=== PATIENT | male | born 1970 | race Caucasian/White ===

== ENCOUNTER → 2017-10-25 | Outpatient (REF) | payer BC ==
[2017-10-25 13:17] LABS: HEMATOCRIT 47.2 % (42.0-52.0); HEMOGLOBIN 16.1 g/dl (14.0-18.0); MEAN CORPUSCULAR HEMOGLOBIN 30.8 pg (27.0-33.0); MEAN CORPUSCULAR HGB CONC 34.1 g/dl (32.0-36.5); MEAN CORPUSCULAR VOLUME 90.4 fl (80.0-96.0); PLATELET COUNT, AUTOMATED 262 10^3/uL (150-450); RED BLOOD COUNT 5.22 10^6/uL (4.30-6.10); RED CELL DISTRIBUTION WIDTH 12.2 % (11.5-14.5)
[2017-10-25 13:37] LABS: VITAMIN B12 LEVEL 675 PG/ML (247-911)
[2017-10-25 14:42] LABS: ALBUMIN 4.4 GM/DL (3.2-5.2); ALBUMIN/GLOBULIN RATIO 1.42 (1.00-1.93); ALKALINE PHOSPHATASE 71 U/L (45-117); ALT/SGPT 41 U/L (12-78); ANION GAP 6 MEQ/L (8-16); AST/SGOT 17 U/L (7-37); BILIRUBIN,TOTAL 0.3 MG/DL (0.2-1.0); BLOOD UREA NITROGEN 11 MG/DL (7-18); CALCIUM LEVEL 8.7 MG/DL (8.5-10.1); CARBON DIOXIDE LEVEL 29 MEQ/L (21-32); CHLORIDE LEVEL 106 MEQ/L (98-107); CHOLESTEROL LEVEL 173 MG/DL (<200); CREATININE FOR GFR 0.87 MG/DL (0.70-1.30); FERRITIN 119 NG/ML (26-388); FREE T4 0.89 NG/DL (0.76-1.46); GLOMERULAR FILTRATION RATE > 60.0 (>60); GLUCOSE, FASTING 90 MG/DL (70-100); HDL CHOLESTEROL 46 MG/DL (>40); NON-HDL-C 127 MG/DL; POTASSIUM SERUM 4.5 MEQ/L (3.5-5.1); SODIUM LEVEL 141 MEQ/L (136-145); TOTAL PROTEIN 7.5 GM/DL (6.4-8.2); TRIGLYCERIDES LEVEL 75 MG/DL (<150)
[2017-10-27 00:09] LABS: TESTOSTERONE FREE (DIRECT) 11.3 pg/mL (6.8-21.5)
== END ==
LOC: M SFHCCLAY 09:21
DX: Z00.00 Encounter for general adult medical examination without abnormal findings (principal); R53.83 Other fatigue
CPT/HCPCS: 84403

== ENCOUNTER → 2017-12-25 | Outpatient (CLI) | payer BC | LOC: M RAD 10:10 | DX: I73.9 Peripheral vascular disease, unspecified (principal); R51 Headache | CPT/HCPCS: 70551 ==

== ENCOUNTER → 2018-01-23 | Outpatient (REF) | payer BC ==
[2018-01-23 12:29] LABS: ERYTHROCYTE SEDIMENTATION RATE 2 mm/hr (0-15)
[2018-01-23 13:02] LABS: FERRITIN 122 NG/ML (26-388); IRON (FE) 119 UG/DL (65-175); PERCENT SATURATION 36.8 % (19.7-50.0); TOTAL IRON BINDING CAPACITY 323 UG/DL (250-450)
[2018-01-25 00:06] LABS: ANTINUCLEAR ANTIBODIES DIRECT Negative (Negative)
== END ==
LOC: M LABNEURO 09:23
DX: R51 Headache (principal)
CPT/HCPCS: 83550

== ENCOUNTER → 2019-05-06 | Outpatient (CLI) | payer OTHER ==
--- NOTE | 2019-05-06 15:02 | REP ---
REASON: Knee pain. FINDINGS: The compartments are symmetric and relatively well maintained. There is no acute fracture or destructive osseous lesion. Electronically Signed by Kevin Hagan DO 05/06/2019 03:15 P
== END ==
LOC: M RAD 13:54
PROVIDERS: ATTEND Physician Assistant Medical
DX: M25.561 Pain in right knee (principal)

== ENCOUNTER 2021-04-19 16:44 | Observation (INO) | payer BC, OTHER ==
[~2021-04-19] VITALS: Ht 175.3 cm; Wt 88.4 kg
--- NOTE | 2021-04-19 17:07 | REP ---
INDICATION: neuro symptoms. COMPARISON: MRI 12/25/2017, CT 01/19/2008 TECHNIQUE: CT BRAIN PERFORMED IN THE AXIAL PLANE. CORONAL RECONSTRUCTION IMAGES ARE PERFORMED. FINDINGS: THE VENTRICLES ARE NORMAL IN SIZE AND POSITION. THERE IS NO MIDLINE SHIFT OR MASS EFFECT. VALE-WHITE DIFFERENTIATION IS WELL MAINTAINED. THERE IS NO ACUTE INTRACRANIAL HEMORRHAGE OR EXTRA-AXIAL FLUID COLLECTION. BONE WINDOW EXAMINATION IS UNREMARKABLE. VISUALIZED MASTOID AIR CELLS AND PARANASAL SINUSES ARE CLEAR. IMPRESSION: NEGATIVE NONCONTRAST CT BRAIN. <Electronically signed by Mode Sunshine > 04/19/21 [id number]
--- NOTE | 2021-04-19 17:28 | REP ---
INDICATION: CVA. COMPARISON: 08/21/2016. TECHNIQUE: Single portable AP view of the chest was performed. FINDINGS: There is no acute infiltrate or pulmonary edema. Lungs are clear. The heart is not significantly enlarged. The mediastinal silhouette is unremarkable. The visualized osseous structures are intact. IMPRESSION: No acute pulmonary disease. <Electronically signed by Kvng Lama > 04/19/21 [id number]
[2021-04-19 17:31] LABS: BASO % 0.6 % (0.0-1.0); EOS % 0.6 % (0.0-3.0); HEMATOCRIT 48.1 % (42.0-52.0); HEMOGLOBIN 16.3 g/dl (13.5-17.5); LYMPH # 2.1 10^3/uL (1.5-5.0); MEAN CORPUSCULAR HEMOGLOBIN 30.8 pg (27.0-33.0); MEAN CORPUSCULAR HGB CONC 33.9 g/dl (32.0-36.5); MEAN CORPUSCULAR VOLUME 90.8 fl (80.0-96.0); MONO # 0.5 10^3/uL (0.0-0.8); MONO % 7.5 % (2.0-8.0); NEUTROPHILS # 4.5 10^3/uL (1.5-8.5); NEUTROPHILS % 61.9 % (36.0-66.0); PLATELET COUNT, AUTOMATED 261 10^3/uL (150-450); WHITE BLOOD COUNT 7.2 10^3/uL (4.0-10.0)
[2021-04-19 17:56] LABS: INR 0.93; PARTIAL THROMBOPLASTIN TIME 26.4 SECONDS (24.2-38.5); PROTHROMBIN TIME 12.7 SECONDS (12.5-14.3)
[2021-04-19 18:07] LABS: BLOOD UREA NITROGEN 8 MG/DL (7-18); CARBON DIOXIDE LEVEL 27 MEQ/L (21-32); CHLORIDE LEVEL 108 MEQ/L (98-107); CK-MB VALUE MASS 1.5 NG/ML (<3.6); CPK CREATINE PHOSPHOKINASE 210 U/L (39-308); CREATININE FOR GFR 0.76 MG/DL (0.70-1.30); GLOMERULAR FILTRATION RATE > 60.0 (>56); GLUCOSE, FASTING 84 MG/DL (70-100); MB/CK RELATIVE INDEX 0.71 (< OR =4); POTASSIUM SERUM 3.9 MEQ/L (3.5-5.1); SODIUM LEVEL 141 MEQ/L (136-145); TROPONIN I < 0.02 NG/ML (< 0.10)
[2021-04-19] MEDS ORDERED: ISOVUE-370 76% 100ML VIAL As Ordered ONE (18:29)
--- NOTE | 2021-04-19 19:10 | REPVR ---
PROCEDURE INFORMATION: Exam: CT Angiography Head With Contrast, Arteriography Exam date and time: 04/19/2021 6:35 PM Age: 50 years old Clinical indication: Other: Left sided facial numbness/left arm heaviness TECHNIQUE: Imaging protocol: Computed tomography angiography of the head with contrast. Exam focused on the arteries. 3D rendering (Not supervised by radiologist): MIP and/or 3D reconstructed images were created by the technologist. Radiation optimization: All CT scans at this facility use at least one of these dose optimization techniques: automated exposure control; mA and/or kV adjustment per patient size (includes targeted exams where dose is matched to clinical indication); or iterative reconstruction. Contrast material: ISOVUE 370; Contrast volume: 100 ml; Contrast route: INTRAVENOUS (IV); COMPARISON: CT Head without contrast 04/19/2021 4:53 PM FINDINGS: Ventricles, cisterns and sulci are symmetric and appropriate for age. No intracranial mass or focal mass effect. No intracranial hemorrhage, midline shift or acute territorial infarct. Anterior circulation: Normal contrast opacification and luminal caliber in the petrous, cavernous and supraclinoid internal carotid arteries. Normal appearance of the anterior cerebral artery branches and middle cerebral artery branches through the MCA trifurcations. No occlusion, high-grade focal stenosis or dissection. No aneurysm. Posterior circulation: Distal vertebral arteries enhance normally to the vertebrobasilar junction. Normally enhancing, normal caliber basilar artery, and normal superior cerebellar and posterior cerebral arteries. No occlusion, high-grade stenosis or aneurysm. Diminutive left P1 segment, with normal caliber left SANDBLAST OPERATOR predominantly supplied by a posterior communicating artery Dural sinuses enhance normally. Bony structures show no acute fracture or destructive process. IMPRESSION: No intracranial large vessel arterial occlusive or high-grade stenotic lesion ASPECTS ([place] Stroke Program Early CT Score) is 10. Electronically signed by: Sahil Lr On 04/19/2021 19:09:16 PM
--- NOTE | 2021-04-19 19:12 | REPVR ---
PROCEDURE INFORMATION: Exam: CT Angiography Neck With Contrast Exam date and time: 04/19/2021 6:35 PM Age: 50 years old Clinical indication: Other: Left sided facial numbness/left arm heaviness TECHNIQUE: Imaging protocol: Computed tomography angiography of the neck with contrast. 3D rendering (Not supervised by radiologist): MIP and/or 3D reconstructed images were created by the technologist. Radiation optimization: All CT scans at this facility use at least one of these dose optimization techniques: automated exposure control; mA and/or kV adjustment per patient size (includes targeted exams where dose is matched to clinical indication); or iterative reconstruction. Contrast material: ISOVUE 370; Contrast volume: 100 ml; Contrast route: INTRAVENOUS (IV); COMPARISON: CT Spine,cervical w/o contrast 07/30/2015 7:10 PM FINDINGS: Right common carotid, cervical ICA and proximal ECA demonstrate contrast opacification with no occlusion, flow limiting stenosis, or intimal flap to suggest dissection. Left common carotid, cervical ICA and proximal ECA demonstrate contrast opacification, with no occlusion, flow limiting stenosis, or intimal flap to suggest dissection. Vertebral arteries demonstrate normal course to the level of the skull base and show no occlusion, flow limiting stenosis or dissection. No flow limiting stenosis or anomaly of the great vessel origins. No concerning asymmetric neck soft tissue abnormality. IMPRESSION: Unremarkable CT Angiogram of the neck. REFERENCES: NASCET CRITERIA. The degree of internal carotid artery stenosis is based on NASCET criteria. Normal is no stenosis. Mild is less than 50% stenosis. Moderate is 50-69% stenosis. Severe is 70% to 99% stenosis. Total occlusion is no detectable patent lumen. Electronically signed by: Sahil Lr On 04/19/2021 19:11:56 PM
--- NOTE | 2021-04-19 21:17 | REPVR ---
PROCEDURE INFORMATION: Exam: MR Head Without Contrast Exam date and time: 04/19/2021 8:44 PM Age: 50 years old Clinical indication: Speech disturbance; Slurred speech; Patient HX: Left sided facial numbness; Left arm heaviness TECHNIQUE: Imaging protocol: MR of the head without contrast. COMPARISON: CT Head without contrast 04/19/2021 4:53 PM FINDINGS: No abnormal restriction of diffusion to indicate acute CVA. Midline structures and cerebellar tonsillar position appear normal. Ventricles, cisterns and sulci are symmetric and normal for age. No intracranial mass, midline shift or abnormal extra-axial fluid. No acute intracranial hemorrhage. Mild pattern of increased T2 and flair signal in supratentorial white matter. Optic chiasm and pituitary infundibulum appear normal. Normal vascular flow voids in major intracranial arteries and dural venous sinuses. Paranasal sinuses are normally aerated. Mastoid air cells are normally aerated. Optic globes and orbits are unremarkable. IMPRESSION: No acute intracranial abnormality. Mild symmetric supratentorial white matter changes most suggestive of chronic microangiopathic disease, with demyelination being in the differential diagnosis. Pattern does not suggest any particular demyelination process Electronically signed by: Sahil Lr On 04/19/2021 21:17:18 PM
--- NOTE | 2021-04-19 21:22 | REPVR ---
PROCEDURE INFORMATION: Exam: MRA Head Without Contrast; Arteriography Exam date and time: 04/19/2021 8:44 PM Age: 50 years old Clinical indication: Speech disturbance; Slurred speech; Patient HX: Left sided facial numbness; Left arm heaviness TECHNIQUE: Imaging protocol: Magnetic resonance angiography head without contrast. Exam focused on the arteries. COMPARISON: CT ANGIO HEAD 04/19/2021 6:33 PM FINDINGS: Anterior circulation: Normal flow signal and luminal caliber in the petrous, cavernous and supraclinoid internal carotid arteries. Normal appearance of the anterior cerebral artery branches and middle cerebral artery branches through the MCA trifurcations. No occlusion, high-grade focal stenosis or dissection. No aneurysm. Posterior circulation: Normal distal vertebral arteries, with patent normal caliber basilar artery, and normal superior cerebellar and posterior cerebral arteries. No occlusion, high-grade stenosis or aneurysm. IMPRESSION: Unremarkable MR angiogram of the [place] and intracranial vertebrobasilar system. Electronically signed by: Sahil Lr On 04/19/2021 21:21:52 PM
--- NOTE | 2021-04-19 21:24 | REPVR ---
PROCEDURE INFORMATION: Exam: MRA Neck Without Contrast Exam date and time: 04/19/2021 8:44 PM Age: 50 years old Clinical indication: Speech disturbance; Slurred speech; Patient HX: Left sided facial numbness; Left arm heaviness TECHNIQUE: Imaging protocol: Magnetic resonance angiography of the neck without contrast. COMPARISON: CT ANGIO NECK 04/19/2021 6:33 PM FINDINGS: Bilateral common carotid arteries, carotid bulbs, internal carotids and proximal external carotid branches show normal symmetric luminal caliber and flow signal. No high-grade stenosis. No occlusion or dissection. Both vertebral arteries are normal in luminal caliber and flow signal to the level of the skull base. No dissection, or occlusion or focal stenosis. No abnormality of the great vessel origins from the aortic arch. IMPRESSION: Unremarkable MR angiogram of the neck. REFERENCES: NASCET CRITERIA. The degree of internal carotid artery stenosis is based on NASCET criteria. Normal is no stenosis. Mild is less than 50% stenosis. Moderate is 50-69% stenosis. Severe is 70% to 99% stenosis. Total occlusion is no detectable patent lumen. Electronically signed by: Sahil Lr On 04/19/2021 21:23:53 PM
[2021-04-19] MEDS ORDERED: ASPIRIN 81 MG CHEW TABLET PO ONE (21:45)
[2021-04-19] MEDS ORDERED: ACETAMINOPHEN TAB 650MG DOSE (2X325MG) PO PRN (22:20)
[2021-04-19] MEDS ORDERED: MOM 30ML SUSPENSION UDC PO PRN (22:20)
[2021-04-19] MEDS ORDERED: MAALOX 30 ML SUSP *UDC PO PRN (22:20)
--- NOTE | 2021-04-19 22:22 | ECGEPIP ---
[facility] - ED Test Date: 2021-04-19 Pat Name: MALENA TIRADO Department: Room: - Gender: Male Gym[employer]: : 1970 Requested By: Jabari Gomez Order Number: [id number] Reading MD: Mario Morales Measurements Intervals [place] Rate: 62 P: 16 ME: 162 QRS: -11 QRSD: 114 T: 4 QT: 408 QTc: 414 Interpretive Statements Normal sinus rhythm Minimal voltage criteria for LVH, may be normal variant Baseline artifact Similar to tracing done 04-22-16 Electronically Signed on 04-19-2021 22:22:12 EDT by Mario Morales
[2021-04-19] MEDS ORDERED: ATORVASTATIN 20 MG TAB PO SCH (22:35)
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
[2021-04-19 22:53] LABS: RSV AMPLIFICATION NEGATIVE (NEGATIVE)
[2021-04-19 23:58] VITALS: BP 108/71
[2021-04-20 05:54] LABS: BASO % 0.5 % (0.0-1.0); EOS # 0.1 10^3/uL (0.0-0.5); EOS % 1.4 % (0.0-3.0); HEMATOCRIT 46.2 % (42.0-52.0); HEMOGLOBIN 15.5 g/dl (13.5-17.5); LYMPH # 1.9 10^3/uL (1.5-5.0); LYMPH % 23.6 % (24.0-44.0); MEAN CORPUSCULAR HEMOGLOBIN 30.7 pg (27.0-33.0); MEAN CORPUSCULAR HGB CONC 33.5 g/dl (32.0-36.5); MEAN CORPUSCULAR VOLUME 91.5 fl (80.0-96.0); MONO # 0.7 10^3/uL (0.0-0.8); MONO % 9.3 % (2.0-8.0); NEUTROPHILS # 5.2 10^3/uL (1.5-8.5); NEUTROPHILS % 64.8 % (36.0-66.0); PLATELET COUNT, AUTOMATED 247 10^3/uL (150-450); RED BLOOD COUNT 5.05 10^6/uL (4.30-6.10)
[2021-04-20 06:00] VITALS: BP 108/72
[2021-04-20 06:15] LABS: BLOOD UREA NITROGEN 12 MG/DL (7-18); CALCIUM LEVEL 8.7 MG/DL (8.5-10.1); CARBON DIOXIDE LEVEL 26 MEQ/L (21-32); CHLORIDE LEVEL 110 MEQ/L (98-107); CHOLESTEROL LEVEL 149 MG/DL (<200); CHOLESTEROL RISK RATIO 4.027 (<5); CREATININE FOR GFR 0.81 MG/DL (0.70-1.30); GLOMERULAR FILTRATION RATE > 60.0 (>56); GLUCOSE, FASTING 107 MG/DL (70-100); HDL CHOLESTEROL 37 MG/DL (>40); LDL CHOLESTEROL 72 MG/DL (<100); MAGNESIUM LEVEL 2.4 MG/DL (1.8-2.4); NON-HDL-C 112 MG/DL; POTASSIUM SERUM 3.9 MEQ/L (3.5-5.1); SODIUM LEVEL 143 MEQ/L (136-145); TRIGLYCERIDES LEVEL 201 MG/DL (<150)
[2021-04-20] MEDS ORDERED: ASPIRIN 325 MG TAB PO SCH (09:00)
[2021-04-20] MEDS ORDERED: ENOXAPARIN 40MG/0.4ML SYRINGE (J1650 PER 10MG) SC SCH (09:00)
--- NOTE | 2021-04-20 11:39 | DS.PDOC ---
Discharge Summary General Date of Admission Apr 19, 2021 at 16:45 Date of Discharge 04/20/2021 Attending Physician: ALBARO CH MD Discharge Summary PROCEDURES PERFORMED DURING STAY: None ADMITTING DIAGNOSES: TIA DISCHARGE DIAGNOSES: TIA COMPLICATIONS/CHIEF COMPLAINT: TIA. HISTORY OF PRESENT ILLNESS: Mr. Cuevas is a 50-year-old M with a history of rare L sided migraines who presented to the ER with complaints of left facial numbness and a pulsing in his left carotid. He reported having been visiting [facility] over the past weekend when he noticed his left carotid artery pulsing. It resolved but then recurred on the day of presentation and was associated with what he termed a left facial numbness. His stated he had some droop of his left upper lip. He also reported a feeling of heaviness in the left arm. The patient has no significant medical history other than chronic fatigue syndrome which was diagnosed in 2019. At that time he had a test for sleep apnea that was negative. HOSPITAL COURSE: On initial evaluation patient's vital signs were unremarkable. Labs showed no significant abnormality. He had a CT of the head which was negative for acute intracranial abnormalities without hemorrhage, evidence of infarct or mass. CTA of the head and neck were also unremarkable and MRI showed chronic microangiopathic disease but no acute abnormality. MRA of the head and neck showed no significant stenosis. Neurology, was consulted by phone by the ER provider and recommended that the patient be started on full strength aspirin daily. His exam remained back at baseline without any noted or reported sensation deficits. He had a TTE done with a pending read. He is now being discharged home with close PCP follow up. Although his ASCVD score low, this admission for possible TIA warranted starting Lipitor at 20mg daily for the next 30d until it is clear if his symptoms are tied to [place] for evolving migraine patterns or true TIAs. DISCHARGE MEDICATIONS: Please see below. ALLERGIES: Please see below. PHYSICAL EXAMINATION ON DISCHARGE: VITAL SIGNS: Please see below. GEN: NAD HEENT: NCAT, EOMI, PERRLA, anicteric NECK: supple, no adenopathy or bruits PULM: CTAB CARDIAC: RRR, no m/r/g ABD: Normoactive sounds, soft, NTND EXT: WWP, no LE edema NEURO: CN3-12 intact, normal gait, sensation and strength intact throughout, speech clear PSYCH: AOx3 LABORATORY DATA: Please see below. IMAGING: CT head THE VENTRICLES ARE NORMAL IN SIZE AND POSITION. THERE IS NO MIDLINE SHIFT OR MASS EFFECT. VALE-WHITE DIFFERENTIATION IS WELL MAINTAINED. THERE IS NO ACUTE INTRACRANIAL HEMORRHAGE OR EXTRA-AXIAL FLUID COLLECTION. BONE WINDOW EXAMIN ATION IS UNREMARKABLE. VISUALIZED MASTOID AIR CELLS AND PARANASAL SINUSES ARE CLEAR. IMPRESSION: NEGATIVE NONCONTRAST CT BRAIN. CTA head: Ventricles, cisterns and sulci are symmetric and appropriate for age. No intracranial mass or focal mass effect. No intracranial hemorrhage, midline shift or acute territorial infarct. Anterior circulation: Normal contrast opacification and luminal caliber in the petrous, cavernous and supraclinoid internal carotid arteries. Normal appearance of the anterior cerebral artery branches and middle cerebral artery branches through the MCA trifurcations. No occlusion, high-grade focal stenosis or dissection. No aneurysm. Posterior circulation: Distal vertebral arteries enhance normally to the vertebrobasilar junction. Normally enhancing, normal caliber basilar artery, and normal superior cerebellar and posterior cerebral arteries. No occlusion, high-grade stenosis or aneurysm. Diminutive left P1 segment, with normal caliber left COOK RESTAURANT predominantly supplied by a posterior communicating artery Dural sinuses enhance normally. Bony structures show no acute fracture or destructive process. IMPRESSION: No intracranial large vessel arterial occlusive or high-grade stenotic lesion CTA neck: Right common carotid, cervical ICA and proximal ECA demonstrate contrast opacification with no occlusion, flow limiting stenosis, or intimal flap to suggest dissection. Left common carotid, cervical ICA and proximal ECA demonstrate contrast opacification, with no occlusion, flow limiting stenosis, or intimal flap to suggest dissection. Vertebral arteries demonstrate normal course to the level of the skull base and show no occlusion, flow limiting stenosis or dissection. No flow limiting stenosis or anomaly of the great vessel origins. No concerning asymmetric neck soft tissue abnormality. IMPRESSION: Unremarkable CT Angiogram of the neck. MRI brain: No abnormal restriction of diffusion to indicate acute CVA. Midline structures and cerebellar tonsillar position appear normal. Ventricles, cisterns and sulci are symmetric and normal for age. No intracranial mass, midline shift or abnormal extra-axial fluid. No acute intracranial hemorrhage. Mild pattern of increased T2 and flair signal in supratentorial white matter. Optic chiasm and pituitary infundibulum appear normal. Normal vascular flow voids in major intracranial arteries and dural venous sinuses. Paranasal sinuses are normally aerated. Mastoid air cells are normally aerated. Optic globes and orbits are unremarkable. IMPRESSION: No acute intracranial abnormality. Mild symmetric supratentorial white matter changes most suggestive of chronic microangiopathic disease, with demyelination being in the differential diagnosis. Pattern does not suggest any particular demyelination process MRA brain: Anterior circulation: Normal flow signal and luminal caliber in the petrous, cavernous and supraclinoid internal carotid arteries. Normal appearance of the anterior cerebral artery branches and middle cerebral artery branches through the MCA trifurcations. No occlusion, high-grade focal stenosis or dissection. No aneurysm. Posterior circulation: Normal distal vertebral arteries, with patent normal caliber basilar artery, and normal superior cerebellar and posterior cerebral arteries. No occlusion, high-grade stenosis or aneurysm. IMPRESSION: Unremarkable MR angiogram of the [place] and intracranial vertebrobasilar system. MRA neck: Bilateral common carotid arteries, carotid bulbs, internal carotids and proximal external carotid branches show normal symmetric luminal caliber and flow signal. No high-grade stenosis. No occlusion or dissection. Both vertebral arteries are normal in luminal caliber and flow signal to the level of the skull base. No dissection, or occlusion or focal stenosis. No abnormality of the great vessel origins from the aortic arch. IMPRESSION: Unremarkable MR angiogram of the neck CXR: There is no acute infiltrate or pulmonary edema. Lungs are clear. The heart is not significantly enlarged. The mediastinal silhouette is unremarkable. The visualized osseous structures are intact. IMPRESSION: No acute pulmonary disease. PROGNOSIS: Good ACTIVITY: As tolerated DIET: Regular DISCHARGE PLAN: Home with PCP follow up DISPOSITION: home DISCHARGE INSTRUCTIONS: 1. Home with close PCP follow up. ASA 81 mg daily and lipitor 20mg with close PCP follow up. ITEMS TO FOLLOWUP ON ON OUTPATIENT: L facial numbness DISCHARGE CONDITION: Stable TIME SPENT ON DISCHARGE: 40 minutes. Vital Signs/I&Os Vital Signs Date Time Temp Pulse Resp B/P (MAP) Pulse Ox O2 Delivery O2 Flow Rate FiO2 04/20/21 06:00 97.7 64 16 108/72 (84) 94 Room Air I&O- Last 24 Hours up to 6 AM 04/20/21 06:00 Intake Total 0 ml Output Total 375 ml Balance -375 ml Laboratory Data Labs 24H Laboratory Tests 2 04/19/21 17:10: Prothrombin Time 12.7, Prothromb Time International Ratio 0.93, Activated Partial Thromboplast Time 26.4 04/19/21 17:11: Immature Granulocyte % (Auto) 0.4, Neutrophils (%) (Auto) 61.9, Lymphocytes (%) (Auto) 29.0, Monocytes (%) (Auto) 7.5, Eosinophils (%) (Auto) 0.6, Basophils (%) (Auto) 0.6, Neutrophils # (Auto) 4.5, Lymphocytes # (Auto) 2.1, Monocytes # (Auto) 0.5, Eosinophils # (Auto) 0.0, Basophils # (Auto) 0.0, Nucleated Red Blood Cells % (auto) 0.0, Anion Gap 6L, Glomerular Filtration Rate > 60.0, Calcium Level 9.0, Total Creatine Kinase 210, Creatine Kinase MB 1.5, Creatine Kinase MB Relative Index 0.71, Troponin I < 0.02 04/19/21 22:02: Coronavirus (COVID-19)(PCR) NEGATIVE, Influenza Type A (RT-PCR) NEGATIVE, Influenza Type B (RT-PCR) NEGATIVE, Respiratory Syncytial Virus (PCR) NEGATIVE 04/20/21 05:17: Immature Granulocyte % (Auto) 0.4, Neutrophils (%) (Auto) 64.8, Lymphocytes (%) (Auto) 23.6L, Monocytes (%) (Auto) 9.3H, Eosinophils (%) (Auto) 1.4, Basophils (%) (Auto) 0.5, Neutrophils # (Auto) 5.2, Lymphocytes # (Auto) 1.9, Monocytes # (Auto) 0.7, Eosinophils # (Auto) 0.1, Basophils # (Auto) 0.0, Nucleated Red Blood Cells % (auto) 0.0, Anion Gap 7L, Glomerular Filtration Rate > 60.0, Calcium Level 8.7, Magnesium Level 2.4, Triglycerides Level 201H, Total Cholesterol 149, LDL Cholesterol 72, Non-HDL Cholesterol (LDL + VLDL) 112, Total HDL Cholesterol 37L, Cholesterol/HDL Ratio 4.027 CBC/BMP Laboratory Tests 04/19/21 17:11 04/20/21 05:17 Discharge Medications No Active Prescriptions or Reported Meds Allergies Coded Allergies: No Known Drug Allergies (Verified Allergy, Unknown, 04/19/21) ALBARO CH MD Apr 20, 2021 11:39
[2021-04-20] MEDS ORDERED: ATOR1TAB21 PO (11:40)
[2021-04-20] MEDS ORDERED: ECOT81TA5 PO (11:40)
[2021-04-20 14:00] VITALS: BP 119/73
--- NOTE | 2021-04-21 10:48 | CR ---
CONSULTATION DATE: 04/20/2021 REFERRING PHYSICIAN: Ivette Azevedo M.D. REASON FOR CONSULTATION: Left-sided facial tingling and left arm heaviness. HISTORY OF PRESENT ILLNESS: Rambo Cuevas is a 50-year-old man who developed left-sided facial numbness, left carotid pulsations and left arm heaviness. They were in [facility] over the weekend. He first developed pulsating sensation in his left carotid artery. Then he felt left-sided facial tingling and possible drooping of left side of mouth and left arm heaviness. His symptoms resolved over the weekend, but recurred on the day of admission. He denies any headaches, dysphagia, dysarthria, diplopia, urinary incontinence, falls or loss of consciousness. He has periodic headaches around his left frontal and temporal head region, around left eye, which are 6-7/10 in intensity, lasting for a couple of hours without photophobia, phonophobia, nausea or vomiting. He did not have headache with his current symptoms. He also has carotid neck pain which feels different than his current symptoms. He did not have neck pain with his current symptoms, either. He came to [facility] and had extensive tests. CT scan of head, CTA of head and neck were unremarkable. MRI scan of brain showed mild small vessel ischemic disease of brain. MRA brain and neck were normal. His scans were reviewed. EKG and telemetry monitoring showed sinus rhythm without atrial fibrillation. LDL was 72, HDL was 37, total cholesterol was 149. CBC was unremarkable. PAST MEDICAL HISTORY: 1. Migraines. 2. Chronic fatigue syndrome. 3. Left knee surgery. 4. Hand surgery. SOCIAL HISTORY: He smokes 1/2 pack per day. He denies illicit drugs. He lives with his . He occasionally drinks alcohol. REVIEW OF SYSTEMS: All systems are reviewed and found to be noncontributory except as mentioned in the history of present illness. FAMILY HISTORY: Unremarkable and noncontributory. HOME MEDICATIONS: None. ALLERGIES: None. PHYSICAL EXAMINATION: VITAL SIGNS: Temperature 97.8, pulse 63, respiratory rate 17, blood pressure 119/73, 92% saturations on room air. HEART: Regular rate and rhythm. LUNGS: Clear to auscultation. ABDOMEN: Soft, nontender, nondistended. EXTREMITIES: No pedal edema. No musculoskeletal abnormalities. SKIN: No rash. NEUROLOGIC: No signs of meningeal irritation. Patient is awake, alert, oriented to place, person and time. Normal speech, comprehension and repetition. No facial weakness. Tongue and uvula are midline. 5/5 strength in all four extremities. Normal sensation throughout, although patient feels slight difference in sensation in the left lower face. Gait was not tested. Patient was getting an echocardiogram done when I saw patient. ASSESSMENT: 1. Episode of left-sided facial tingling and left arm heaviness with concern for transient ischemic attack (TIA). 2. Left carotid pulsating sensation. Cannot produce symptoms on left side of body. It would cause symptoms on right-sided symptoms if there was any correlation and MRA and CTA of head and neck are unremarkable in the first place. PLAN: 1. Aspirin 81 mg by mouth daily. 2. Await report of his echocardiogram. 3. Follow with our office in two weeks after hospital discharge.
--- NOTE | 2021-04-29 12:18 | ECHO ---
ECHOCARDIOGRAM There was no Echo file to attach to this report? DATE OF PROCEDURE: 04/20/2021 Age: 50 Gender: Male Height: 175 cm Weight: 88 kg REFERRING PHYSICIAN: Yudelka Tony NP INDICATION: Transient cerebral ischemia unspecified 2D MEASUREMENTS: Left atrium 3.4 cm Aortic root 3. 2 cm Intraventricular septum 1.01 cm Posterior wall 1.02 cm Left ventricle diastole 4.8 cm Left atrium volume index 19 Inferior vena cava 2.5 cm Doppler Measurements: No aortic stenosis No aortic regurgitation Aortic valve velocity 133 cm/s LVOT velocity 96.6 cm/s No mitral regurgitation No mitral stenosis Mitral E velocity 81.9 cm/s Mitral A velocity 69.0 cm/s Very mild tricuspid regurgitation Estimated right ventricular systolic pressure 24-29 mmHg Estimated right atrium pressure 5-10 mmHg No pulmonic regurgitation Pulmonary artery acceleration time 124 msec DESCRIPTION: Rhythm was sinus rhythm and sinus bradycardia. Image quality was fair. No pericardial effusion. This was a 2D, M-mode, color flow Doppler, and pulsed wave Doppler examination including mitral annular tissue Doppler. CONCLUSIONS: 1. Saline contrast Bubble study was negative for detection of right to left intracardiac shunting or for intrapulmonary shunting. 2. Normal left ventricle internal dimensions and wall thickness. Normal regional LV wall motion and wall thickening. Normal LV systolic function. Normal LV diastolic function. 3. Otherwise normal appearing echocardiogram Doppler findings.
== END 2021-04-20 16:45 | disposition home or self-care (01) ==
LOC: M ED 16:44 → M MSPAV 16:45 → UNDOADMIN 16:45 → M MSPAV 16:45 → M ED 04-20 00:04 → UNDODISIN 04-20 11:45
PROVIDERS: ADMIT Internal Medicine; ATTEND Internal Medicine
DX: G45.9 Transient cerebral ischemic attack, unspecified (principal); G43.909 Migraine, unspecified, not intractable, without status migrainosus; R53.82 Chronic fatigue, unspecified; F17.218 Nicotine dependence, cigarettes, with other nicotine-induced disorders
CPT/HCPCS: 36415; 70450; 70496; 70498; 70544; 70547; 70551; 71045; 80048; 80061; 82550; 82553; 83735; 84484; 85025; 85610; 85730; 86850; 86900; 86901; 87631; 93005; 93041; 93306; 94760; 96372; 99285; J1650; Q9967

== ENCOUNTER → 2021-08-18 | Outpatient (CLI) | payer BC ==
[~2021-08-18] MED LIST: ATOR1TAB21 PO; ECOT81TA5 PO
--- NOTE | 2021-08-18 11:26 | REP ---
INDICATION: M47.812. CERVICAL SPONDYLOSIS. COMPARISON: None. TECHNIQUE: AP, lateral, open mouth views of the cervical spine. FINDINGS: Very subtle marginal spurring and minimal disc space narrowing is identified at multiple levels. Alignment and lordosis maintained. No acute fracture/compression injury or subluxation. Open mouth view demonstrates normal C1-C2 articulation and odontoid process. IMPRESSION: Mild age-related degenerative changes including marginal spurring and minimal disc space narrowing. <Electronically signed by Ceferino Kim > 08/18/21 112
== END ==
LOC: M CLY 09:43
PROVIDERS: ATTEND Family Medicine
DX: M47.812 Spondylosis without myelopathy or radiculopathy, cervical region (principal)

== ENCOUNTER 2022-03-07 16:44 | Observation (INO) | payer BC ==
[~2022-03-07] VITALS: Ht 177.8 cm; Wt 89.5 kg
[2022-03-07] MEDS ORDERED: ISOVUE-370 76% 100ML VIAL As Ordered ONE (17:33)
[2022-03-07 17:42] VITALS: BP 121/79
[2022-03-07 17:53] LABS: BASO % 0.4 % (0.0-1.0); EOS % 0.4 % (0.0-3.0); HEMATOCRIT 49.3 % (42.0-52.0); HEMOGLOBIN 16.8 g/dl (13.5-17.5); LYMPH # 2.3 10^3/uL (1.5-5.0); MEAN CORPUSCULAR HEMOGLOBIN 30.6 pg (27.0-33.0); MEAN CORPUSCULAR HGB CONC 34.1 g/dl (32.0-36.5); MEAN CORPUSCULAR VOLUME 89.8 fl (80.0-96.0); MONO # 0.6 10^3/uL (0.0-0.8); NEUTROPHILS # 4.5 10^3/uL (1.5-8.5); NEUTROPHILS % 59.9 % (36.0-66.0); PLATELET COUNT, AUTOMATED 267 10^3/uL (150-450); RED BLOOD COUNT 5.49 10^6/uL (4.30-6.10); WHITE BLOOD COUNT 7.5 10^3/uL (4.0-10.0)
[2022-03-07 18:03] LABS: INR 0.9; PROTHROMBIN TIME 12.6 SECONDS (12.7-14.5)
[2022-03-07 18:04] LABS: PARTIAL THROMBOPLASTIN TIME 29.1 SECONDS (25.9-37.0)
[2022-03-07 18:19] LABS: BLOOD UREA NITROGEN 12 MG/DL (7-18); CALCIUM LEVEL 9.2 MG/DL (8.5-10.1); CARBON DIOXIDE LEVEL 28 MEQ/L (21-32); CHLORIDE LEVEL 106 MEQ/L (98-107); CREATININE FOR GFR 0.98 MG/DL (0.70-1.30); GLOMERULAR FILTRATION RATE > 60.0 (>56); GLUCOSE, FASTING 97 MG/DL (70-100); POTASSIUM SERUM 3.7 MEQ/L (3.5-5.1); SODIUM LEVEL 139 MEQ/L (136-145)
[2022-03-07 18:36] LABS: CK-MB VALUE MASS 1.9 NG/ML (<3.6); CPK CREATINE PHOSPHOKINASE 279 U/L (39-308); MB/CK RELATIVE INDEX 0.68 (< OR =4)
[2022-03-07] MEDS ORDERED: ASPIRIN 325 MG TAB PO ONE (18:45)
[2022-03-07] MEDS ORDERED: HOME MED LIST COMPLETE! XX SCH (19:05)
[2022-03-07 19:25] LABS: RSV AMPLIFICATION NEGATIVE (NEGATIVE)
[2022-03-07] MEDS ORDERED: ATORVASTATIN 20 MG TAB PO SCH (21:00)
[2022-03-07 23:00] VITALS: BP 128/78
[2022-03-07 23:20] VITALS: BP 128/78
[2022-03-08] VITALS: BP 128/78
[2022-03-08 04:00] VITALS: BP 122/70
[2022-03-08 06:00] VITALS: BP 122/70
[2022-03-08 06:46] LABS: BASO % 0.7 % (0.0-1.0); EOS # 0.1 10^3/uL (0.0-0.5); EOS % 1.4 % (0.0-3.0); HEMATOCRIT 47.4 % (42.0-52.0); HEMOGLOBIN 16.4 g/dl (13.5-17.5); LYMPH # 1.8 10^3/uL (1.5-5.0); LYMPH % 30.5 % (24.0-44.0); MEAN CORPUSCULAR HEMOGLOBIN 31.4 pg (27.0-33.0); MEAN CORPUSCULAR HGB CONC 34.6 g/dl (32.0-36.5); MEAN CORPUSCULAR VOLUME 90.6 fl (80.0-96.0); MONO # 0.5 10^3/uL (0.0-0.8); MONO % 8.9 % (2.0-8.0); NEUTROPHILS # 3.4 10^3/uL (1.5-8.5); NEUTROPHILS % 58.2 % (36.0-66.0); PLATELET COUNT, AUTOMATED 245 10^3/uL (150-450); RED BLOOD COUNT 5.23 10^6/uL (4.30-6.10); WHITE BLOOD COUNT 5.8 10^3/uL (4.0-10.0)
[2022-03-08 07:14] LABS: CHOLESTEROL RISK RATIO 4.162 (<5)
[2022-03-08 07:15] LABS: BLOOD UREA NITROGEN 12 MG/DL (7-18); CALCIUM LEVEL 8.8 MG/DL (8.5-10.1); CARBON DIOXIDE LEVEL 27 MEQ/L (21-32); CHLORIDE LEVEL 108 MEQ/L (98-107); GLOMERULAR FILTRATION RATE > 60.0 (>56); GLUCOSE, FASTING 91 MG/DL (70-100); SODIUM LEVEL 139 MEQ/L (136-145)
[2022-03-08] MEDS ORDERED: ENOXAPARIN 40MG/0.4ML SYRINGE (J1650 PER 10MG) SC SCH (09:00)
[2022-03-08] MEDS ORDERED: ASPIRIN 81MG ENTERIC TABLET PO SCH (09:00)
[2022-03-08] MEDS ORDERED: ASPIRIN 81 MG CHEW TABLET PO SCH (09:00)
[2022-03-08 10:00] VITALS: BP 115/75
[2022-03-08] MEDS ORDERED: ASPI-551 PO (16:05)
[2022-03-08] MEDS ORDERED: ATOR80TA59 PO (16:05)
== END 2022-03-08 16:51 | disposition home or self-care (01) ==
LOC: M ED 16:44 → M ED INP 20:34 → M MSPAV 22:55
PROVIDERS: ADMIT Family Medicine; ATTEND Internal Medicine
DX: G45.9 Transient cerebral ischemic attack, unspecified (principal); F17.210 Nicotine dependence, cigarettes, uncomplicated; E78.00 Pure hypercholesterolemia, unspecified; M50.20 Other cervical disc displacement, unspecified cervical region; M54.50 Low back pain, unspecified; Z79.82 Long term (current) use of aspirin; Z79.899 Other long term (current) drug therapy
CPT/HCPCS: 36415; 70450; 70496; 70498; 70551; 71045; 80047; 80048; 80061; 82550; 82553; 84443; 84484; 85025; 85610; 85730; 87631; 93005; 93041; 94760; 96372; 97161; 99285; J1650; Q9967

== ENCOUNTER → 2022-09-15 | Outpatient (REF) | payer BC ==
[~2022-09-15] MED LIST changes: +ASPI-551 PO; +ATOR80TA59 PO
== END ==
LOC: M SFHCCLAY 07:35
PROVIDERS: ATTEND Family Medicine
DX: Z53.20 Procedure and treatment not carried out because of patient's decision for unspecified reasons (principal)

== ENCOUNTER → 2022-12-28 | Outpatient (CLI) | payer BC | LOC: M CLY 09:23 | PROVIDERS: ATTEND Family Medicine | DX: M19.92 Post-traumatic osteoarthritis, unspecified site (principal); Z53.9 Procedure and treatment not carried out, unspecified reason ==

== ENCOUNTER → 2023-01-02 | Outpatient (CLI) | payer BC | LOC: M CLY 08:07 | PROVIDERS: ATTEND Family Medicine | DX: M19.92 Post-traumatic osteoarthritis, unspecified site (principal) ==

== ENCOUNTER → 2023-01-31 | Outpatient (REF) | payer BC ==
[2023-01-31 20:35] LABS: GC DNA AMPLIFICATION NEGATIVE (NEGATIVE)
== END ==
LOC: M SFHCCLAY 09:44
PROVIDERS: ATTEND Physician Assistant
DX: R30.0 Dysuria (principal)

== ENCOUNTER → 2023-03-07 | Outpatient (REF) | payer BC ==
[2023-03-07 13:06] LABS: HEMATOCRIT 47.9 % (42.0-52.0); MEAN CORPUSCULAR HEMOGLOBIN 30.8 pg (27.0-33.0); MEAN CORPUSCULAR HGB CONC 33.4 g/dl (32.0-36.5); MEAN CORPUSCULAR VOLUME 92.3 fl (80.0-96.0); PLATELET COUNT, AUTOMATED 267 10^3/uL (150-450); RED BLOOD COUNT 5.19 10^6/uL (4.30-6.10); WHITE BLOOD COUNT 5.1 10^3/uL (4.0-10.0)
[2023-03-07 13:55] LABS: ALBUMIN 4.2 G/DL (3.2-5.2); ALKALINE PHOSPHATASE 78 U/L (46-116); ALT/SGPT 35 U/L (7.0-40); AST/SGOT 16 U/L (<34); BILIRUBIN,TOTAL 0.4 MG/DL (0.3-1.2); BLOOD UREA NITROGEN 14 MG/DL (9-23); CARBON DIOXIDE LEVEL 25 MMOL/L (20-31); CHLORIDE LEVEL 106 MMOL/L (98-107); CHOLESTEROL LEVEL 168 MG/DL (<200); CREATININE FOR GFR 0.89 MG/DL (0.70-1.30); GLOMERULAR FILTRATION RATE > 60.0 (>56); GLUCOSE, FASTING 99 MG/DL (60-100); HDL CHOLESTEROL 45.4 MG/DL (>40); LDL CHOLESTEROL 104.6 MG/DL (<100); NON-HDL-C 122.6 MG/DL; POTASSIUM SERUM 4.7 MMOL/L (3.5-5.1); SODIUM LEVEL 139 MMOL/L (136-145); TOTAL PROTEIN 6.9 G/DL (5.7-8.2); TRIGLYCERIDES LEVEL 90 MG/DL (<150)
== END ==
LOC: M SFHCCLAY 07:59
PROVIDERS: ATTEND Family Medicine
DX: E78.00 Pure hypercholesterolemia, unspecified (principal); N41.1 Chronic prostatitis

== ENCOUNTER → 2023-04-13 | Outpatient (REF) | payer BC | LOC: M SFHCCLAY 10:09 | PROVIDERS: ATTEND Family Medicine | DX: G62.9 Polyneuropathy, unspecified (principal); R20.2 Paresthesia of skin ==

== ENCOUNTER → 2024-04-09 | Outpatient (CLI) | payer BC | LOC: M CLY 10:09 | PROVIDERS: ATTEND Family Medicine | DX: G89.29 Other chronic pain (principal); M25.511 Pain in right shoulder ==